=== PATIENT | female | born 1950 | race Caucasian/White ===

== ENCOUNTER 2016-11-22 14:39 | Emergency (ER) | payer OTHER ==
[~2016-11-22] VITALS: Ht 157.5 cm; Wt 62.6 kg
[2016-11-22 14:40] VITALS: BP 135/77
--- NOTE | 2016-11-22 15:00 | ED NECK/BACK PAIN COMPLAINT ---
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 PT TO ROOM 11 FOR PROVIDER PARVEZ. Triage Nurses Notes Reviewed? yes Onset: Abrupt Duration: minute(s):, constant Timing: single episode today Location: paraspinous muscles Loss of Consciousness: no loss of consciousness HPI: 66-year-old female signed into the emergency room after a work-related injury. 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 Patient felt a pull in that area. Patient has a sharp pain. Pain radiates down into the shoulder slightly. Hurts with any type of range of motion. Hurts when she turns her neck to the left. Denies any numbness or tingling in her arms or weakness in her arms. Denies any other associated symptoms at this time. Past History Travel History Traveled to [place] past 21 day No Medical History Any Pertinent Medical History? 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 No Review of Systems Review of Systems Constitutional: Reports: no symptoms. Eyes: Reports: no symptoms. Ears, Nose, Throat, Mouth: Reports: no symptoms. Respiratory: Reports: no symptoms. Cardiovascular: Reports: no symptoms. Gastrointestinal/Abdominal: Reports: no symptoms. Musculoskeletal: Reports: see HPI. Skin: Reports: no symptoms. Neurological/Psychological: Reports: no symptoms. All Other Systems: Reviewed and Negative Physical Exam Physical Exam General Appearance: well developed/nourished, mild distress Head: atraumatic Eyes: Bilateral: normal appearance, EOMI. Ears, Nose, Throat, Mouth: hearing grossly normal, moist mucous membrane Neck: normal inspection, full range of motion, soft tissue swelling to left paraspinal/trapezius muscle and cervical region, tenderness with palpation, no midline tenderness, Respiratory: no respiratory distress Cardiovascular: regular rate/rhythm Back: normal inspection Extremities: normal range of motion, radial pulse 2+ left side, 5/5 reinforcing bar setter strength, Neurologic/Psych: awake, alert, oriented x 3, normal mood/affect Skin: intact, normal color, warm/dry Progress Differential Diagnosis: carotid dissection, cauda equina syn, herniated disc, myofascial strain, sciatica, spinal cord inj, thoracic outlet syn, T/L spine injury, muscle strain Plan of Care: 11/22/2016 3:44:01 PM Pain is most consistent with muscular pain. Reproducible on exam. Patient seen by Dr. Marcus. Clinically no other signs of trauma. Patient should have no heavy lifting for the next week. Patient may require diagnostic imaging with MRI if symptoms persist for evaluation of disc herniation or muscle tear. Patient needs close follow-up with occupational medicine. In no apparent distress upon discharge. Departure Departure Disposition: HOME OR SELF CARE Condition: Stable Clinical Impression Primary Impression: Cervical strain, acute Secondary Impressions: Trapezius muscle strain Referrals: WALESKA MARRERO MD (PCP/Family) Additional Instructions: Take ibuprofen as needed at home. Ice for the first 24 hours. Moist heat after that. Follow-up with occupational medicine. No heavy lifting for the next 7 days. Return if any other concerns. Please go over all results of today's visit with your primary care doctor. Contact your primary care doctor to let them know you were here in the emergency room. There may be nonspecific findings which may not be related to your visit today here in the emergency room but may require further evaluation and chronic monitoring by your primary care doctor. If you had a laceration today the chance of foreign body always remains. You should follow-up with your primary care doctor for recheck in 3-5 days for a wound check. If you had an x-ray done there is a chance that a fracture could have been missed on initial read and you should follow-up with your primary care doctor for repeat x-rays if symptoms persist. If your blood pressure was elevated here in the emergency room please have rechecked by her primary care doctor within the next 48 hours by your primary care doctor. If you were prescribed a narcotic here in the emergency room or any type of controlled substances you're not allowed to drive while taking this medication or operate any type of heavy machinery. Narcotics can make you feel lightheaded dizziness nausea and can cause constipation. You may need to crop picker a stool softener. Thank you for choosing [facility] emergency room. Please return to the emergency room immediately if you have any other concerns worsening of symptoms. Departure Forms: Customer Survey [employer] Employee Acc General Discharge Information
== END 2016-11-22 15:28 ==
LOC: ERH 14:39
DX: S16.1XXA Strain of muscle, fascia and tendon at neck level, initial encounter (principal); S46.912A Strain of unspecified muscle, fascia and tendon at shoulder and upper arm level, left arm, initial encounter; X50.0XXA Overexertion from strenuous movement or load, initial encounter; Y93.F2 Activity, caregiving, lifting; Y92.238 Other place in hospital as the place of occurrence of the external cause
CPT/HCPCS: 99282

== ENCOUNTER 2018-02-02 18:13 | Emergency (ER) | payer OTHER, MEDICARE ==
[~2018-02-02] VITALS: Ht 154.9 cm; Wt 59.9 kg
[~2018-02-02 18:13] MED LIST: AMBIEN10 M1 PO; MAGNESIUM400 M1 PO; TRAZODONE HCL50 M1 PO; ZOFRAN ODT4 M1 PO
[2018-02-02 18:20] VITALS: BP 149/83
--- NOTE | 2018-02-02 18:24 | ED GENERAL ADULT ---
History of Present Illness General Chief Complaint: Eye Problems Stated Complaint: PT CAN'T SEE OUT OF HER LT EYE Source: patient Exam Limitations: no limitations Vital Signs & Intake/Output Vital Signs & Intake/Output Vital Signs Date Time Temp Pulse Resp B/P B/P Pulse O2 O2 Flow FiO2 Mean Ox Delivery Rate 02/02 1834 Room Air 02/02 1820 98.4 91 18 149/83 98 Room Air Allergies Coded Allergies: NO KNOWN ALLERGIES (08/28/15) Reconcile Medications Magnesium Oxide (Magnesium) (Unknown Strength) CAPSULE (Unknown Dose) PO DAILY PRN SUPPLEMENT (Reported) Ondansetron (Zofran Odt) 4 MG TAB.RAPDIS 1 TAB PO Q6 PRN NAUSEA Trazodone HCl 50 MG TABLET 1 TAB PO PRN SLEEP (Reported) Zolpidem Tartrate (Ambien) 10 MG TABLET 1 TAB PO QPMP PRN insomnia Triage Note: 67 YO FEMALE TO TRIAGE FOR OF L EYE BLURRINESS. STATES SHE HAD A ROMERO AND LAYED DOWN AND WHEN SHE WOKE UP HER L EYE WAS BLURRY. STATES SHE HAD IMPLANTS IN HER EYES IN OCTOBER AFTER CATARACT SURGERY. EYE DR IS DR BLACKBURN. DENIES ANY PAIN. STATES ROMERO HAS RESOLVED. DENIES ANY OTHER S/S. Triage Nurses Notes Reviewed? yes Onset: Abrupt Duration: hour(s): Timing: constant HPI: 67-year-old female with a history of cataracts presenting with left-sided headache and left eye blurriness that began after she woke up from a nap. States that the headache has since self resolved, but she still has residual blurriness in her left eye. Reports that she had lens implants done in October for cataracts. Is followed by Dr. Howe. Denies eye pain, eye trauma, eye discharge, vision loss. (Chika Steven) Past History Travel History Traveled to [place] past 21 day No Medical History Any Pertinent Medical History? 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 No (Chika Steven) Review of Systems Review of Systems Constitutional: Reports: no symptoms. EENTM: Reports: see HPI. Respiratory: Reports: no symptoms. Cardiovascular: Reports: no symptoms. GI: Reports: no symptoms. Genitourinary: Reports: no symptoms. Musculoskeletal: Reports: no symptoms. Skin: Reports: no symptoms. Neurological/Psychological: Reports: no symptoms. Hematologic/Endocrine: Reports: no symptoms. Immunologic/Allergic: Reports: no symptoms. (Chika Steven) Physical Exam Physical Exam General Appearance: well developed/nourished, no apparent distress, alert, awake , comfortable Head: atraumatic, normal appearance, no tenderness to palpation over the temporal artery Eyes: Bilateral: normal appearance, PERRL, EOMI. 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 No CVA/TIA Diagnosis: No Sepsis Present: No Sepsis Focused Exam Completed? No (Chika Steven) Progress Differential Diagnoses I considered the following diagnoses in my evaluation of the patient: [Cataract lens displacement versus temporal arteritis versus central retinal artery/vein occlusion, low concern for CVA] Plan of Care: Discussed with and was instructed to discharge patient from the emergency department so that she could immediately follow-up in his office. Patient was discharged and given strict return precautions. She will present directly to Dr. Howe's office for evaluation. Initial ED EKG: none (Chika Steven) Departure Departure Disposition: HOME OR SELF CARE Condition: Stable Clinical Impression Primary Impression: Blurring, left eye Referrals: Lisa JOSEPH,Felice Zhu (PCP/Family) Additional Instructions: Follow-up with Dr. Howe for reevaluation today. Return to the emergency department for any new or worsening symptoms. Departure Forms: Customer Survey General Discharge Information (Chika Steven) PA/ENTRY LEVEL FINANCE Co-Sign Statement Statement: ED Attending supervision documentation- [x] I saw and evaluated the patient. I have also reviewed all the pertinent lab results and diagnostic results. I agree with the findings and the plan of care as documented in the PA's/ENTRY LEVEL FINANCE's documentation. Patient presents for evaluation of blurred vision status post cataract implants. I observed patient walking down the hallway but was unable to see her personally due to the urgency of her visual issue. ED PA contacted the front office help who will see the patient in his office. Patient was discharged from the emergency department expedite specialist evaluation. [] I have reviewed the ED Record and agree with the PA's/ENTRY LEVEL FINANCE's documentation. [] Additions or exceptions (if any) to the PAs/ENTRY LEVEL FINANCE's note and plan are summarized below: [] (Angeline JOSEPH,Kota Daigle) Critical Care Note Critical Care Note Critical Care Time: non-applicable (Patsy SZYMANSKI,Chika)
== END 2018-02-02 18:54 ==
LOC: ERH 18:13
DX: H53.8 Other visual disturbances (principal)